=== PATIENT | male | born 1985 | race Caucasian/White ===

== ENCOUNTER 2018-10-27 21:23 | Emergency (ER) | payer SELFPAY ==
[2018-10-27 22:31] LABS: #Basophils 0.1 thou/uL (0.0-0.2); #Eosinphils 0.1 thou/uL (0.0-0.7); #Lymphocytes 1.7 thou/uL (1.20-3.40); #Monocytes 0.5 thou/uL (0.11-0.59); %Basophils 1.8 % (0.0-1.0); %Eosinophils 2.1 % (0.0-10.0); %Monocytes 8.3 % (0.0-10.0); %Neutrophils 55.8 % (42.0-75.0); Hemoglobin 14.7 g/dL (14.0-18.0); Mean Corpuscular HGB CONC 34.3 g/dL (32.0-36.0); Mean Corpuscular Hemoglobin 29.7 pg (27.0-31.0); Mean Corpuscular Volume 86.7 fL (78.0-98.0); Mean Platelet Volume 5.9 fL (7.4-10.4); Platelet Count 310 thou/uL (130-400); Red Blood Cell (RBC) Count 4.96 mill/uL (4.70-6.10); White Blood Cell (WBC) Count 5.4 thou/uL (4.8-10.8)
--- NOTE | 2018-10-27 22:50 | RAD ---
CHEST ONE VIEW: 10/27/18 HISTORY: 33-year-old male with history of medical clearance for methamphetamine use. COMPARISON: 09/24/12 FINDINGS: Mild increased bronchovascular markings bilaterally, but no confluent pneumonia, overt edema, or pleu ral effusion. IMPRESSION: No acute intrathoracic disease. No pneumonia, edema, or pleural effusion, or other acute process. POS: [facility]
[2018-10-27 22:53] LABS: ALT (SGPT) 15 U/L (8-55); AST (SGOT) 22 U/L (5-34); Albumin 4.3 g/dL (3.5-5.0); Alkaline Phosphatase 62 U/L (40-150); Anion Gap 11 mmol/L (10-20); BUN (Urea Nitrogen) 11 mg/dL (8.9-20.6); Bilirubin, Total 0.6 mg/dL (0.2-1.2); Calc. Creatinine Clearance 0 mL/min (70-130); Calcium 9.9 mg/dL (7.8-10.44); Carbon Dioxide 28 mmol/L (22-29); Chloride 105 mmol/L (98-107); Estimated GFR-MDRD 62; Glucose 98 mg/dL (70-105); Potassium 3.8 mmol/L (3.5-5.1); Protein, Total 7.3 g/dL (6.0-8.3); Sodium 140 mmol/L (136-145)
--- NOTE | 2018-10-27 23:57 | ULT ---
BILATERAL SCROTAL ULTRASOUND INCLUDING COLOR AND SPECTRAL DOPPLER IMAGIN10/27/18 HISTORY: 33-year-old male with history of testicular pain and swelling for six months off and on. Right testis measures 4.8 x 2.1 x 2.3 cm. Left testis measures 4.3 x 1.8 x 2.8 cm. The epididymal re gions are within normal limits with the left being slightly larger than the right. Vascular flow with arterial inflow and venous outflow documented to both testis. No evidence for test icular torsion. No intra-testicular mass. No significant hydrocele. Suggestion of minimal increased f low to the left epididymal tail region, this is a nonspecific finding but can be seen in epididymitis . IMPRESSION: No testicular torsion or intratesticular mass or hydrocele. Possible mild increased flow in the left epididymis tail, a finding that could possibly be seen with associated epididymitis. POS: [facility]
== END 2018-10-28 00:10 ==
LOC: ERS 21:23
DX: R07.89 Other chest pain (principal); N50.819 Testicular pain, unspecified; F32.9 Major depressive disorder, single episode, unspecified; F17.210 Nicotine dependence, cigarettes, uncomplicated
CPT/HCPCS: 36415; 71045; 76870; 80053; 84484; 85025; 93005; 93976